=== PATIENT | female | born 1950 | race Caucasian/White ===

== ENCOUNTER 2019-06-18 15:02 | Emergency (ER) | payer MEDICARE ==
[~2019-06-18] VITALS: Ht 157.5 cm; Wt 77.0 kg
--- NOTE | 2019-06-18 15:23 | NUR ---
Spider bite on her right foot 2 weeks ago was seen by PCP put on Clindamycin now has rash on chest and back 4 days ago now having sob and tightness in her throat for the past Hour. NO WOB NOTED, POX 96%
[2019-06-18 16:05] LABS: BASOPHILS # (AUTO) 0.02 x10^3/uL (0-0.1); BASOPHILS % (AUTO) 0 % (0-1); EOSINOPHILS # (AUTO) 0.25 x10^3/uL (0-0.4); EOSINOPHILS % (AUTO) 3 % (1-7); LYMPHOCYTES # (AUTO) 1.89 x10^3/uL (1-3.4); LYMPHOCYTES % (AUTO) 19 % (22-44); MD NO; MEAN CORPUSCULAR HEMOGLOBIN 31.7 pg (27.0-34.8); MEAN CORPUSCULAR HGB CONC 33.2 g/dL (32.4-35.8); MEAN CORPUSCULAR VOLUME 95.3 fL (80-100); MEAN PLATELET VOLUME 7.9 fL (7.4-10.4); MONOCYTES # (AUTO) 0.74 x10^3/uL (0.2-0.8); MONOCYTES % (AUTO) 7 % (2-9); NEUTROPHILS # (AUTO) 7.11 x10^3/uL (1.8-6.8); NEUTROPHILS % (AUTO) 71 % (42-75); PLATELET COUNT 273 x10^3/uL (130-400); RED BLOOD COUNT 4.45 x10^6/uL (3.82-5.3); RED CELL DISTRIBUTION WIDTH 13.7 % (9.6-15.2)
--- NOTE | 2019-06-18 16:05 | NUR ---
PT IS A/O X3. PT DENIES PAIN. RED RAISED RASH COVERING ENTIRE BODY. CAMELID FIBER SORTER PERFORMED. IV PLACED IN LEFT HAND WITH ONE ATTEMPT. LABS DRAWN AND SENT. PT TOLERATED PROCEDURE WELL.
[2019-06-18 16:08] LABS: HCT (SEDRATE) 42.4 % (34.6-47.8)
[2019-06-18 16:18] LABS: ALANINE AMINOTRANSFERASE 51 U/L (12-78); ALBUMIN 3.8 g/dL (3.4-5.0); ANION GAP 7 mmol/L (5-15); CALCIUM 9.5 mg/dL (8.5-10.1); CHLORIDE 108 mmol/L (98-107); CREATININE 0.88 mg/dL (0.55-1.02)
[2019-06-18 16:20] LABS: ALKALINE PHOSPHATASE 111 U/L (45-117); BILIRUBIN,TOTAL 0.4 mg/dL (0.2-1.0); TOTAL PROTEIN 7.7 g/dL (6.4-8.2)
[2019-06-18] MEDS ORDERED: DIPHENHYDRAMINE 50 MG/ML, 1ML ONE (16:50)
[2019-06-18] MEDS ORDERED: FAMOTIDINE 20 MG/2 ML ONE (16:50)
[2019-06-18] MEDS ORDERED: methylPREDNISolone SOD SUCC 125 MG/2 ML ONE (16:50)
[2019-06-18] MEDS ORDERED: EPINEPHRINE 1 MG/ML, 1ML ONE (16:53)
[2019-06-18] MEDS ORDERED: EPINEPHRINE 1 MG/ML, 1ML SQ ONE (17:00)
[2019-06-18] MEDS ORDERED: FAMOTIDINE 20 MG/2 ML IVPush ONE (17:00)
[2019-06-18] MEDS ORDERED: DIPHENHYDRAMINE 50 MG/ML, 1ML IVPush ONE (17:00)
[2019-06-18] MEDS ORDERED: methylPREDNISolone SOD SUCC 125 MG/2 ML IVPush SCH (17:00)
--- NOTE | 2019-06-18 17:05 | NUR ---
ROUTE OF EPINEPHRINE CLARIFIED WITH PROVIDED (ORDER RECEIVED FOR SQ 02/999 EPI). PROVIDER OKAY WITH ADMIN IM. MEDICATED VIA ANTERIOR THIGH IM INJECTION
--- NOTE | 2019-06-18 18:20 | NUR ---
PT LYING ON GURNEY, DENIES HEADACHE AND WANTS TO GO HOME.
--- NOTE | 2019-06-18 18:24 | NUR ---
PT RESTING IN BED WITHOUT ANY COMPLAINTS. RASH IS STILL PRESENT, BUT NOT RED. WILL CONTINUE TO MONITOR NEXT RECHECK AT 0700
--- NOTE | 2019-06-18 18:33 | NUR ---
SILVER RYAN TO UPDATE, .
--- NOTE | 2019-06-18 19:47 | NUR ---
DISCHARGE INSTRUCTIONS GIVEN TO PATIENT WITH ONE PRESCRIPTION. PT VERBALIZES UNDERSTANDING OF ALL INSTRUCTIONS AND FOLLOW UP. PT VERBALZIES UNDERSTANDING ON NEED TO STOP TAKING PRESCSRIBED ANTIBIOTIC AT HOME. PT WILL CALL FOR FOLLOW UP. IV REMOVED WITH CATH INTACT. PT AMBULATED OUT OF ED PER PEDIS, WHERE DAUGHTER WILL BE DRIVING HOME.
[2019-06-18 19:49] VITALS: BP 143/60
== END 2019-06-18 19:53 | disposition home or self-care (01) ==
LOC: ED 15:19
DX: L27.0 Generalized skin eruption due to drugs and medicaments taken internally (principal); T36.8X5A Adverse effect of other systemic antibiotics, initial encounter; R06.02 Shortness of breath; Y92.89 Other specified places as the place of occurrence of the external cause
CPT/HCPCS: 36415; 80053; 85025; 85651; 93005; 96372; 96374; 96375; 99285; J0171; J1200; J2930; J3490